=== PATIENT | male | born 1965 | race Caucasian/White ===

== ENCOUNTER 2020-09-13 05:34 | Outpatient (RCR) | payer OTHER ==
[~2020-09-13] VITALS: Ht 175.3 cm; Wt 83.6 kg
== END 2020-09-13 10:06 | disposition home or self-care (01) ==
LOC: PREOP 05:34
PROVIDERS: ATTEND Internal Medicine
DX: Z01.812 Encounter for preprocedural laboratory examination (principal); Z20.828 Contact with and (suspected) exposure to other viral communicable diseases
CPT/HCPCS: 87635

== ENCOUNTER 2020-09-16 07:40 | Day surgery (SDC) | payer OTHER ==
--- NOTE | 2020-09-01 17:58 | HISTORY AND PHYSICAL ---
DATE OF SERVICE: COLONOSCOPY HISTORY AND PHYSICAL HISTORY OF PRESENT ILLNESS: The patient is a 55-year-old white male seen for yearly wellness evaluation. He was due for screening colonoscopy due to just to be of higher than average risk as his brother was diagnosed with colon cancer at the age of 41. He last accomplished colonoscopy 5 years ago at which time, he had no evidence for neoplasia. He reports that he has been feeling well. 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 He has had no chest discomfort or shortness of breath. He has had no change in bowel habit and has noted no melena or bright red blood per rectum. His weight was down 7.4 pounds, he believes due to change in occupation with more physical activity and his current place of employment, which I believe is a [employer] business. FAMILY HISTORY: There have been no changes in family history. His father at age 63 of prostate cancer. He also had lymphoma of the stomach. Mother of breast cancer at the age of 61. He has two sisters, one is a breast cancer survivor and four brothers, one had kidney cancer. There are no other family members with known colon cancer but several have had colon polyps. PHYSICAL EXAMINATION: GENERAL: Reveals a white male, appears to be in no acute distress. VITAL SIGNS: Blood pressure 110/70, weight 184. HEENT: Unremarkable. NECK: Revealed no JVD, adenopathy or bruits. Ear canals clear with normal TMs. CARDIOVASCULAR: Revealed a regular rate and rhythm without murmur, S3 or S4. CHEST: Clear to auscultation. ABDOMEN: Soft, supple without mass, organomegaly or tenderness. EXTREMITIES: Reveal no cyanosis, clubbing or edema. ASSESSMENT AND PLAN: 1. The patient is being set up for screening colonoscopy, 5-year surveillance due to family history and a first-degree relative of early colon cancer, brother being diagnosed at the age of 41. 2. Blood tests reviewed with the patient are normal lipid parameters, low PSA at 22 and a normal chemistry panel. We will have the patient return for yearly wellness checks. Job ID: [id number] DocumentID: [id number] Dictated Date: 09/01/2020 17:10:02 Applied Psychology Teacher Date: 09/01/2020 17:31:40 Dictated By: MD VILMA SOTO
[2020-09-16] VITALS (14 sets, daily range): BP systolic 101–128; BP diastolic 58–77
[~2020-09-16] VITALS: Ht 175.3 cm; Wt 83.6 kg
[2020-09-16] MEDS ORDERED: D5 LR IV SOLUTION 1,000 ML IV STA (07:43)
[2020-09-16] MEDS ORDERED: LIDOCAINE JELLY 2% 6 ML SYRINGE MM PRN (07:45)
[2020-09-16] MEDS ORDERED: fentaNYL INJECTION 100 MCG/2 ML AMP IVP ONE (07:45)
[2020-09-16] MEDS ORDERED: MIDAZOLAM 5 MG/5 ML (VERSED) VIAL IV ONE (07:45)
[2020-09-16] MEDS ORDERED: D5 LR IV SOLUTION 1,000 ML IV ONE (07:48)
[2020-09-16] MEDS ORDERED: LIDOCAINE JELLY 2% 6 ML SYRINGE ONE (07:58)
[2020-09-16] MEDS ORDERED: MIDAZOLAM 5 MG/5 ML (VERSED) VIAL ONE (07:58)
[2020-09-16] MEDS ORDERED: fentaNYL INJECTION 100 MCG/2 ML AMP ONE (07:58)
--- NOTE | 2020-09-16 08:12 | Pre-Op Note & Conscious Sedat ---
Pre-Operative Progress Note H&P Reviewed The H&P was reviewed, patient examined and no changes noted. Date H&P Reviewed: Sep 16, 2020 Time H&P Reviewed: 07:30 Conscious Sedation Pre-Proced ASA Score 1 For ASA 3 and 4: Consider anesthesia and medical clearance. Also, for patients with a history of failed moderate sedation consider anesthesia. Airway Lungs Heart ASA score ASA 1: a normal healthy patient ASA 2: a patient with a mild systemic disease (mid diabetes, controlled hypertension, obesity ASA 3: a patient with a severe systemic disease that limits activity (angina, COPD, prior Myocardial infarction) ASA 4: a patient with an incapacitating disease that is a constant threat to life (CHF, renal failure) ASA 5: a moribund patient not expected to survive 24 hrs. (ruptured aneurysm) ASA 6: a declared brain- patient whose organs are being harvested. For emergent operations, add the letter E after the classification Mallampati Classification Grade 2 Sedation Plan Analgesia, Amnesia, Plan communicated to team members, Discussed options with patient/fam, Discussed risks with patient/fam The patient is an appropriate candidate to undergo the planned procedure, sedation, and anesthesia. The patient immediately re-assessed prior to indication. JESSIE SAAB MD Sep 16, 2020 08:12
--- NOTE | 2020-09-16 13:43 | OPERATIVE REPORT ---
DATE OF SERVICE: COLONOSCOPY INDICATION FOR THE PROCEDURE: Screening colonoscopy, family history for colon cancer. DESCRIPTION OF PROCEDURE: The patient was placed in the left lateral decubitus position. Prior to undergoing colonoscopy, digital rectal evaluation was performed. Anal sphincter tone was normal and the perianal reflexes intact. Prostate is normal in size, anodular, nontender to digital inspection. No abnormalities were noted on digital inspection of anal canal or distal rectal vault. The colonoscope was inserted into the rectum and under direct visualization advanced to the cecum. The cecum was identified by identification of the ileocecal valve and cecal strap. Photographic documentation was obtained. Careful inspection was made as the colonoscope withdrawn. The patient tolerated the procedure well. Quality of prep was good. FINDINGS: There was no evidence for internal or external hemorrhoids and the rectum, sigmoid colon, descending colon, and splenic flexure were unremarkable. Present in the mid transverse colon was diminutive 2 mm sessile polyp. It was photographed, biopsied and ablated. The remainder of the transverse colon, hepatic flexure, ascending colon and cecum were unremarkable. ASSESSMENT: One diminutive polyp was removed via hot forceps from mid transverse colon. This was otherwise unremarkable colonoscopy to the cecum under good prep conditions. Prostate was unremarkable to digital inspection. Due to family history, we will again advocate for surveillance interval of 5 years. Job ID: [id number] DocumentID: [id number] Dictated Date: 09/16/2020 09:15:07 Traffic I Manager Date: 09/16/2020 13:42:50 Dictated By: JESSIE SAAB MD
== END 2020-09-16 09:20 | disposition home or self-care (01) ==
LOC: ENDO 07:40
PROVIDERS: ATTEND Internal Medicine
DX: Z12.11 Encounter for screening for malignant neoplasm of colon (principal); K63.5 Polyp of colon; Z80.0 Family history of malignant neoplasm of digestive organs; Z80.42 Family history of malignant neoplasm of prostate; Z80.3 Family history of malignant neoplasm of breast; Z80.51 Family history of malignant neoplasm of kidney; Z83.71 Family history of colonic polyps